=== PATIENT | female | born 1995 | race Caucasian/White ===

== ENCOUNTER 2016-09-03 12:08 | Emergency (ER) | payer OTHER ==
[~2016-09-03] VITALS: Ht 152.4 cm; Wt 72.0 kg
[2016-09-03 12:14] VITALS: Ht 152.4 cm; Wt 72.0 kg
[2016-09-03] MEDS ORDERED: KETOROLAC 30 MG INJ IM STA (14:14)
--- NOTE | 2016-09-03 16:04 | RADRPT ---
PROCEDURE: XR Cervical Spine. CLINICAL INDICATION: Neck pain after fall TECHNIQUE: Three views of the cervical spine were performed. The images were reviewed on a PACS wo [employer]. COMPARISON: None. FINDINGS: There is straightening and reversal of the normal cervical lordosis. Alignment is otherwise intact. There is no evidence of acute fracture or dislocation. Vertebral body heights are well maintained . Intervertebral disc heights are well maintained. The odontoid is well centered within the latera l masses of C1. The prevertebral soft tissues are within normal limits. Please note the setting of trauma, CT should be considered to exclude occult fracture. IMPRESSION: 1. No plain film evidence of fracture or dislocation. 2. Nonspecific straightening and reversal of the normal cervical lordosis. RPTAT: KK .Niall Marinelli MD, Date Time Electronically viewed and signed by .Niall Marinelli MD, MD on 09/03/2016 16:04 .B/
--- NOTE | 2016-09-03 16:05 | RADRPT ---
PROCEDURE: Thoracic Spine. CLINICAL INDICATION: Back pain after fall TECHNIQUE: Three views of the thoracic spine are available for review COMPARISON: None available FINDINGS: The upper thoracic spine is not well visualized on the lateral view the swimmer's view that is limit ed improved visualization. The normal thoracic kyphosis is well maintained. Alignment is intact. There is no evidence of acute fracture or dislocation. Vertebral body heights are well maintained . Intervertebral disk heights are well maintained. The soft tissues are within normal limits. IMPRESSION: 1. Unremarkable thoracic spine x-rays series. RPTAT: KK .Niall Marinelli MD, MD Date Time Electronically viewed and signed by .Niall Marinelli MD, on 09/03/2016 16:04 .B/
--- NOTE | 2016-09-03 16:05 | RADRPT ---
PROCEDURE: Lumbar spine series CLINICAL INDICATION: Back pain after fall TECHNIQUE: Three views of the lumbar spine are available for review COMPARISON: None available FINDINGS: The normal lumbar lordosis is preserved. Alignment is intact. No acute fracture or dislocation is s een. Vertebral body heights are well maintained. Intervertebral disk heights are well maintained. Paraspinous soft tissues are grossly unremarkable. IMPRESSION: 1. Unremarkable lumbar spine series. RPTAT: KK .Niall Marinelli MD, MD Date Time Electronically viewed and signed by .Niall Marinelli MD, on 09/03/2016 16:04 .B/
--- NOTE | 2016-09-03 16:19 | RADRPT ---
PROCEDURE: CT Brain without contrast. CLINICAL INDICATION: Headache status post fall TECHNIQUE: A CT of the brain was performed on a multidetector CT scanner utilizing axial sections from the skull base through the vertex without contrast. Images were reviewed on a high-resolution [employer] workstation. Exam CTDI = 38.24 mGy and the DLP = 536.14 mGy-cm. One or more of the following dose reduction techniques were used: Automated exposure control Adjustment of the mA and/or kV according to patient size. Use of iterative reconstruction technique. COMPARISON: None available FINDINGS: There is no evidence of intracranial hemorrhage, mass effect or midline shift. No abnormal intra-ax ial or extra-axial fluid collections are seen. The density of the brain is normal and the pedroza/whit e matter differentiation is well preserved. The osseous structures and visualized paranasal sinuse s are unremarkable. IMPRESSION: 1. No intracranial hemorrhage, mass effect or midline shift. RPTAT: BB .Mary Ann Acosta MD, MD Date Time Electronically viewed and signed by .Mary Ann Acosta MD, on 09/03/2016 16:19 .O/
[2016-09-03] MEDS ORDERED: IBUP800T25 PO (16:31)
--- NOTE | 2016-09-03 16:31 | ERD ---
ER Documentation Chief Complaint Date/Time DATE: 09/03/16 TIME: 16:24 Chief Complaint FELL DOWN STAIRS HEAD AND MID BACK PAIN HPI Patient is a 21-year-old female who presents to the ED with headache and back pain after sustaining a fall today. She states that at 12:00 she fell down the cement stairs at her apartment. She states that she fell backwards hurt her head, neck and back. She states that she does not remember what happened and states that she did pass out. She also complains of disorientation. Her partner that is here with her states that she was disoriented. She denies dizziness, vision loss. She states that she has pain behind her head and her back. She is able to walk and denies weakness. Denies urinary or bowel or bladder incontinence. Denies radiation of pain down her legs. Denies numbness or tingling. Denies blurry vision. Denies fever or chills. She has not taken anything for her symptoms. No other complaints. ROS All systems reviewed and are negative except as per history of present illness. Allergies Allergies: Coded Allergies: No Known Allergy (Unverified , 09/03/16) PMhx/Soc Medical and Surgical Hx: pt denies Surgical Hx History of Surgery: No Anesthesia Reaction: No Hx Neurological Disorder: No Hx Respiratory Disorders: No Hx Cardiac Disorders: No Hx Psychiatric Problems: No Hx Miscellaneous Medical Probl: Yes (thyroid) Hx Alcohol Use: No Hx Substance Use: No Hx Tobacco Use: No Smoking Status: Never smoker FmHx Family History: No coronary disease, No diabetes, No other Physical Exam Vitals Vital Signs Date Time Temp Pulse Resp B/P Pulse Ox O2 Delivery O2 Flow Rate FiO2 09/03/16 12:14 98.0 98 18 136/62 99 Physical Exam GENERAL: Well-developed, well-nourished female. Appears in no acute distress. HEAD: Normocephalic, atraumatic. Tenderness to the posterior aspect of her head , occipital region. No hematoma, no laceration, open wounds or bleeding. EYES: Pupils are equally reactive bilaterally. EOMs grossly intact. No conjunctival erythema. ENT: Moist mucous membranes. No uvula deviation. No kissing tonsils. No exudates. No hemotympanum. No watson wound signs NECK: Supple. No lymphadenopathy or thyromegaly. No meningismus. negative kernig. negative brudinski. LUNG: Clear to auscultation bilaterally. No rhonchi, wheezing, rales or coarse breath sounds. HEART: Regular rate and rhythm. No murmurs, rubs or gallops. BACK: Tenderness in the lumbar, thoracic spine. No deformities, step-offs. Tenderness in the paraspinal muscle. No erythema, drainage or open wounds or lacerations. Extremities: Equal pulses bilaterally. No peripheral clubbing, cyanosis or edema. No unilateral leg swelling. NEUROLOGIC: Alert and oriented. Moving all four extremities. 5/5 strength in all extremities. Normal speech. Steady gait. Renal nerves II through XII intact SKIN: Normal color. Warm and dry. No rashes or lesions. Capillary refill < 2 seconds Results 24 hrs Current Medications Medications (Trade) Dose Ordered Sig/Melissa Route PRN Reason Start Time Stop Time Status Last Admin Dose Admin Ketorolac Tromethamine (Toradol) 30 mg ONCE STAT IM 09/03/16 14:14 09/03/16 14:19 DC 09/03/16 14:26 Procedures/MDM ER COURSE: I kept the patient and/or family informed of laboratory and diagnostic imaging results throughout the emergency room course. EKG, MONITORS, & DIAGNOSTIC IMAGING: [place] [id number] Radiology Main Line: [phone] DIAGNOSTIC IMAGING REPORT Patient: SHARON ANG : 1995 Age: 21 Sex: F MR #: [id number] DOS: 09/03/16 [facility] Ordering MD: EDWARD VARGHESE PA-C Location: [facility]TE Room/Bed: PROCEDURE: CT Brain without contrast. CLINICAL INDICATION: Headache status post fall TECHNIQUE: A CT of the brain was performed on a multidetector CT scanner utilizing axial sections from the skull base through the vertex without contrast. Images were reviewed on a high-resolution PACS workstation. Exam CTDI = 38.24 mGy and the DLP = 536.14 mGy-cm. One or more of the following dose reduction techniques were used: Automated exposure control Adjustment of the mA and/or kV according to patient size. Use of iterative reconstruction technique. COMPARISON: None available FINDINGS: There is no evidence of intracranial hemorrhage, mass effect or midline shift. No abnormal intra-axial or extra-axial fluid collections are seen. The density of the brain is normal and the pedroza/white matter differentiation is well preserved. The osseous structures and visualized paranasal sinuses are unremarkable. IMPRESSION: 1. No intracranial hemorrhage, mass effect or midline shift. RPTAT: BB .Mary Ann Acosta MD, Date Time Electronically viewed and signed by .Mary Ann Acosta MD, MD on 09/03/2016 16:19 .O/ CC: EDWARD VARGHESE PA-C [place] [id number] Radiology Main Line: [phone] DIAGNOSTIC IMAGING REPORT Patient: SHARON ANG : 1995 Age: 21 Sex: F MR #: [id number] DOS: 09/03/16 1414 Ordering MD: EDWARD VARGHESE PA-C Location: FTE Room/Bed: PROCEDURE: XR Cervical Spine. CLINICAL INDICATION: Neck pain after fall TECHNIQUE: Three views of the cervical spine were performed. The images were reviewed on a PACS workstation. COMPARISON: None. FINDINGS: There is straightening and reversal of the normal cervical lordosis. Alignment is otherwise intact. There is no evidence of acute fracture or dislocation. Vertebral body heights are well maintained. Intervertebral disc heights are well maintained. The odontoid is well centered within the lateral masses of C1. The prevertebral soft tissues are within normal limits. Please note the setting of trauma, CT should be considered to exclude occult fracture. IMPRESSION: 1. No plain film evidence of fracture or dislocation. 2. Nonspecific straightening and reversal of the normal cervical lordosis. RPTAT: KK .Niall Marinelli MD, MD Date Time Electronically viewed and signed by .Niall Marinelli MD, MD on 2016 16:04 .B/ CC: EDWARD VARGHESE PA-C [place] [address] Radiology Main Line: [phone] DIAGNOSTIC IMAGING REPORT Patient: SHARON ANG : 1995 Age: 21 Sex: F MR #: [id number] DOS: 09/03/16 1414 Ordering MD: EDWARD VARGHESE PA-C Location: FTE Room/Bed: PROCEDURE: Lumbar spine series CLINICAL INDICATION: Back pain after fall TECHNIQUE: Three views of the lumbar spine are available for review COMPARISON: None available FINDINGS: The normal lumbar lordosis is preserved. Alignment is intact. No acute fracture or dislocation is seen. Vertebral body heights are well maintained. Intervertebral disk heights are well maintained. Paraspinous soft tissues are grossly unremarkable. IMPRESSION: 1. Unremarkable lumbar spine series. RPTAT: KK .Niall Marinelli MD, MD Date Time Electronically viewed and signed by .Niall Marinleli MD, MD on 2016 16:04 .B/ CC: EDWARD VARGHESE PA-C [place] [address] Radiology Main Line: [phone] DIAGNOSTIC IMAGING REPORT Patient: SHARON ANG : 1995 Age: 21 Sex: F MR #: [id number] DOS: 09/03/16 1414 Ordering MD: EDWARD VARGHESE PA-C Location: FTE Room/Bed: PROCEDURE: Thoracic Spine. CLINICAL INDICATION: Back pain after fall TECHNIQUE: Three views of the thoracic spine are available for review COMPARISON: None available FINDINGS: The upper thoracic spine is not well visualized on the lateral view the swimmer' s view that is limited improved visualization. The normal thoracic kyphosis is well maintained. Alignment is intact. There is no evidence of acute fracture or dislocation. Vertebral body heights are well maintained. Intervertebral disk heights are well maintained. The soft tissues are within normal limits. IMPRESSION: 1. Unremarkable thoracic spine x-rays series. RPTAT: KK .Niall Marinelli MD, MD Date Time Electronically viewed and signed by .Niall Marinelli MD, MD on 2016 16:04 .B/ CC: EDWARD VARGHESE PA-C MEDICATIONS: Toradol 30. Patient tolerated medication well with no adverse reaction. Seen improvement in symptoms. LAB INTERPRETATION: Urine test was negative. MEDICAL DECISION MAKING: This is a 21-year-old female who presents with headache, back pain after sustaining a fall. Vital signs were reviewed. Patient is afebrile. Patient is not hypoxic. Patient is not toxic or ill-appearing. Her cervical spine x-rays read by radiologist shows no plain film evidence of fracture or dislocation, nonspecific straightening and reversal of the normal cervical lordosis. Her lumbar spine series as read by radiologist is unremarkable as well as her thoracic spine series as read by radiologist. Her CT brain without contrast shows no intracranial hemorrhage, mass-effect or midline shift. Patient likely has muscle strain to her back and headache related to her fall. Low suspicion for intracranial hemorrhage, meningitis, intracranial mass, concussion, temporal arteritis, stroke, elevated intracranial pressure, seizure. Low suspicion for cauda equine syndrome, spinal epidural hematoma, spinal epidural abscess, osteomyelitis, fracture, aortic dissection, AAA, pyelonephritis, nephrolithiasis, septic stone, obstructed stone. DISCHARGE: At this time, patient is stable for discharge and outpatient management with no new complaints during the ER course. Patient was sent home with ibuprofen and norflex. Patient will be discharged home with instructions to recheck for new or worsening symptoms such as fever, nausea, weakness, LOC and to follow up with primary care in the next 1-2 days. Patient was advised to return to the ER for any new or worsening symptoms. Plan was discussed and patient and/or family understands and agrees. Home instructions were given. Departure Diagnosis: Primary Impression: Fall Encounter type: initial encounter Qualified Code: W19.XXXA - Fall, initial encounter Condition: Stable EDWARD VARGHESE PA-C Sep 03, 2016 16:30
[2016-09-03] MEDS ORDERED: ORPH100T PO (16:32)
== END 2016-09-03 16:42 | disposition home or self-care (01) ==
LOC: FTE 12:08
DX: S09.90XA Unspecified injury of head, initial encounter (principal); S39.92XA Unspecified injury of lower back, initial encounter; S29.9XXA Unspecified injury of thorax, initial encounter; R51 Headache; W10.8XXA Fall (on) (from) other stairs and steps, initial encounter; Y92.039 Unspecified place in apartment as the place of occurrence of the external cause
CPT/HCPCS: 70450; 72040; 72072; 72100; 96372; J1885; Z7502

== ENCOUNTER 2017-01-20 17:31 | Emergency (ER) | payer OTHER ==
[~2017-01-20] VITALS: Wt 71.5 kg
[~2017-01-20 17:31] MED LIST: IBUP800T25 PO; ORPH100T PO
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
[2017-01-20] MEDS ORDERED: IBUPROFEN 600 MG TAB PO ONE (19:30)
--- NOTE | 2017-01-20 20:39 | RADRPT ---
PROCEDURE: XR Thoracic Spine. CLINICAL INDICATION: Thoracic spine pain. TECHNIQUE: AP and lateral views of the thoracic spine were obtained. Images reviewed on a PACS wor kstation. COMPARISON: No prior studies are available for comparison. FINDINGS: The alignment of the thoracic spine is within normal limits on the lateral view. There is a trace l eft convex scoliosis centered at 09:10. The vertebral body heights and marrow density are normal in appearance. There is preservation of the intervertebral disc spaces. The neural foramina appear p atent. The paraspinal soft tissues unremarkable. The visualized portions of the thorax are unremar kable. IMPRESSION: 1. Trace left convex scoliosis centered at T9-10. 2. Otherwise, normal radiographs of the thoracic spine. No evidence of fracture or significant deg enerative disc disease. RPTAT: HGAS .Edward Gordon MD, Date Time Electronically viewed and signed by .Edward Gordon MD, on 01/20/2017 20:39 .S/
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
[2017-01-20] MEDS ORDERED: IBUP-1542 PO (21:10)
[2017-01-20] MEDS ORDERED: CYCL-319 PO (21:10)
[2017-01-20 21:53] VITALS: BP 100/58; PULSE 62; RESP 18; TEMP 98.4
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
== END 2017-01-20 21:54 | disposition home or self-care (01) ==
LOC: FTE 17:31
DX: S39.92XA Unspecified injury of lower back, initial encounter (principal); E03.9 Hypothyroidism, unspecified; V43.52XA Car driver injured in collision with other type car in traffic accident, initial encounter
CPT/HCPCS: 71010; 72072; Z7610

== ENCOUNTER 2018-02-11 14:09 | Inpatient (IN) | END 2018-02-14 15:51 | disposition home or self-care (01) | DRG 644 ==